=== PATIENT | female | born 1965 | race Caucasian/White ===

== ENCOUNTER → 2020-10-10 15:08 | Outpatient (CLI) | payer BC, SELFPAY ==
--- NOTE | ~2020-10-10 | MR_ITS ---
EXAMINATION: MR knee RT wo con DATE: 10/10/2020 15:46 INDICATION: Right knee pain. TECHNIQUE: Magnetic resonance imaging (MRI) of the right knee was performed without intravenous contr ast. Sequences included axial PD-weighted FS FSE, coronal PD-weighted FSE and PD-weighted FS FSE, sag ittal PD-weighted FSE, and sagittal T2-weighted FS FSE. COMPARISON: None. FINDINGS: Medial compartment: There is a vertical tear involving the body of medial meniscus. There is shallow partial-thickness ca rtilage loss of femoral condyle and tibial condyle, worst at the central articular surface. Lateral compartment: Lateral meniscus is normal. There is cartilage surface irregularity of tibial condyle and femoral con dyle. Patellofemoral compartment: There is deep partial thickness cartilage loss of patellar median ridge and shallow partial-thickness cartilage loss of patellar medial and lateral facets. There is deep partial thickness cartilage loss of central and medial trochlea and shallow partial-thickness cartilage loss of lateral trochlea. Ligaments and tendons: The anterior and posterior cruciate ligaments are normal. Medial collateral ligament and lateral herb ateral ligament complex are normal. There is mild patellar tendinopathy. Fluid: There is a small knee joint effusion. There is trace fluid in a Arnold's cyst. There is mild prepatell ar and superficial infrapatellar bursitis. IMPRESSION: 1. Moderate chondrosis of patellofemoral compartment and mild chondrosis of medial and lateral compar tments. 2. Tear of medial meniscus. 3. Small knee joint effusion. Reviewed, dictated and finalized at location A. STRIAL GAS PRODUCTION OPERATOR IMPRESSION: 1. Moderate chondrosis of patellofemoral compartment and mild chondrosis of med ial and lateral compartments. 2. Tear of medial meniscus. 3. Small knee joint effusion.
== END ==
DX: M25.461 Effusion, right knee (principal); S83.241A Other tear of medial meniscus, current injury, right knee, initial encounter; X58.XXXA Exposure to other specified factors, initial encounter
CPT/HCPCS: 73721

== ENCOUNTER 2025-01-22 13:16 | Outpatient (CLI) | payer BC, SELFPAY ==
--- OUTSIDE RECORDS SUMMARY | 2025-01-22 13:26 | XMS_ITS | Encounter Summary ---
Author Organization [facility] Healthcare Address [address] [place] [address] Care Team Providers Care Power Nut Runner Operator Name Role Phone Unavailable Primary Care Provider Unavailabl e Reason for Visit * Diagnostic Imaging (Routine) - Closed Specialty Diagnoses / Procedures Referred By Contac t Referred To Contact Procedures Breast Imaging Screening Outside Reference Referral, Self Referral ID Status Reason Start Date Expiration Date Visits Re quested Visits Authorized [id number] Closed 04/01/2023 04/30/2024 1 1 Encounter Details Date Type Department Care Team (Late st Contact Info) Description 09/05/2017 Hospital Encounter [facility] [address] [place] [id number] Social History Tobacco Use Types Packs/Day Years Used Date Smoking Tobacco: Former Cigarettes 1 2015 Smokeless Tobacco: Never PHQ-2 Answer Date Recorded PHQ-2 Total Score (If total score is 3 or more points, staff should administer the PHQ-9) 0 11/14/2023 Comments Unknown Sex and Gender Information Value Date Recorded Sex Assigned at Not on file Legal Sex Female 2:32 AM CHIEF STEWARD/STEWARDESS Gender Identity Female 07/27/2020 1:56 PM CHIEF STEWARD/STEWARDESS Sexual Orientation Straight 08/18/2021 1: 59 PM CHIEF STEWARD/STEWARDESS documented as of this encounter Functional Status * Audit-C Score Answer Date of Assessment Author 1 11/14/2023 8:38 AM CHIEF STEWARD/STEWARDESS Leonor Quezada Provider * Q1: How often do you have a drink containing alcohol? Answer Date of Assessment Author Monthly or less 11/14/2023 8:38 AM CHIEF STEWARD/STEWARDESS Leonor Quezada Provider * Q2: How many drinks containing alcohol do you have on a typical day when you are drinking? Answer Date of Assessment Author 1 or 2 11/14/2023 8:38 AM CHIEF STEWARD/STEWARDESS Leonor Quezada Provider * Q3: How often do you have six or more drinks on one occasion? Answer Date of Assessment Author Mala 11/14/2023 8:38 AM CHIEF STEWARD/STEWARDESS Leonor Quezada Provider documented as of this encounter Plan of Treatment Not on file documented as of this encounter Procedures Procedure Name Priority Date/Time Associated Diagnosis Comments BREAST IMAGING MG SCREENING OUTSIDE REFERENCE Routine 09/05/2017 12:00 AM CHIEF STEWARD/STEWARDESS documented in this encounter Results * Breast Imaging Screening Outside Reference (09/05/2017 12:00 AM CHIEF STEWARD/STEWARDESS) Impressions RAD_MAMMO_BJ - 04/01/2023 3:23 PM CDT These images are for Reference purposes only and have not been reviewed by [facility]. There will be no report generated by a [facility] Radiologist. Narrative RAD_MAMMO_BJ - 04/01/2023 3:23 PM CDT EXAMINATION: Images For Reference Purposes Only us Self Referral IMG MAMMO PROCEDURES Final Resul t RAD_MAMMO_BJ documented in this encounter Visit Diagnoses Not on filedocumented in this encounter
--- OUTSIDE RECORDS SUMMARY | 2025-01-22 13:26 | XMS_ITS | Encounter Summary ---
Author Organization [facility] Healthcare Address [address] [place] [address] Care Team Providers Care Plastic Boat Patcher Name Role Phone Unavailable Primary Care Provider Unavailabl e Reason for Visit * Diagnostic Imaging (Routine) - Closed Specialty Diagnoses / Procedures Referred By Contac t Referred To Contact Procedures Breast Imaging Screening Outside Reference Referral, Self Referral ID Status Reason Start Date Expiration Date Visits Re quested Visits Authorized [id number] Closed 04/01/2023 04/30/2024 1 1 Encounter Details Date Type Department Care Team (Late st Contact Info) Description 07/24/2018 Hospital Encounter [facility] [address] [place] [id number] Social History Tobacco Use Types Packs/Day Years Used Date Smoking Tobacco: Former Cigarettes 1 2015 Smokeless Tobacco: Never PHQ-2 Answer Date Recorded PHQ-2 Total Score (If total score is 3 or more points, staff should administer the PHQ-9) 0 11/14/2023 Comments Unknown Sex and Gender Information Value Date Recorded Sex Assigned at Not on file Legal Sex Female 2:32 AM MANAGER CLIENT Gender Identity Female 07/27/2020 1:56 PM MANAGER CLIENT Sexual Orientation Straight 08/18/2021 1: 59 PM MANAGER CLIENT documented as of this encounter Functional Status * Audit-C Score Answer Date of Assessment Author 1 11/14/2023 8:38 AM MANAGER CLIENT Leonor Quezada Provider * Q1: How often do you have a drink containing alcohol? Answer Date of Assessment Author Monthly or less 11/14/2023 8:38 AM MANAGER CLIENT Leonor Quezada Provider * Q2: How many drinks containing alcohol do you have on a typical day when you are drinking? Answer Date of Assessment Author 1 or 2 11/14/2023 8:38 AM Leonor Ojeda Provider * Q3: How often do you have six or more drinks on one occasion? Answer Date of Assessment Author Mala 11/14/2023 8:38 AM MANAGER CLIENT Leonor Quezada Provider documented as of this encounter Plan of Treatment Not on file documented as of this encounter Procedures Procedure Name Priority Date/Time Associated Diagnosis Comments BREAST IMAGING MG SCREENING OUTSIDE REFERENCE Routine 07/24/2018 12:00 AM MANAGER CLIENT documented in this encounter Results * Breast Imaging Screening Outside Reference (07/24/2018 12:00 AM MANAGER CLIENT) Impressions RAD_MAMMO_BJ - 04/01/2023 3:23 PM CDT These images are for Reference purposes only and have not been reviewed by [facility] Radiology. There will be no report generated by a [facility] Radiologist. Narrative RAD_MAMMO_BJ - 04/01/2023 3:23 PM CDT EXAMINATION: Images For Reference Purposes Only us Self Referral IMG MAMMO PROCEDURES Final Resul t RAD_MAMMO_BJ documented in this encounter Visit Diagnoses Not on filedocumented in this encounter
--- OUTSIDE RECORDS SUMMARY | 2025-01-22 13:26 | XMS_ITS | Referral Summary ---
Author Organization [facility] [address] Address [address] [place] [address] Care Team Providers Care Cnc Router Operator Name Role Phone Kip Springer MD Primary Care Provider [phone] Encounters Date Type Department Care Team Description 11/19/2024 Results Follow-Up [facility] at [address] [phone] Tabitha Dunlap MD 11/17/2024 6:55 PM CDT - 11/17/2024 11:59 PM CDT Hospital Encounter [address] [phone] Dysuria Discharge Disposition: Discharge to home or self care 11/17/2024 5:30 PM CDT Office Visit [facility] at [address] [phone] Dania Prater NP Dysuria (Primary Dx) from Last 3 Months Allergies Active Allergy Reactions Criticality Noted Date Comments Codeine Medications fluticasone propionate (FLONASE) 50 mcg/actuation nasal spray Administer 1 spray into each nostril daily Active ProAir RespiClick 90 mcg/actuation inhaler INHALE 2 PUFFS BY MOUTH EVERY 6 HOURS NEEDED FOR WHEEZING 1 each 2 05/17/20 22 Active ALPRAZolam (XANAX) 1 mg tabletIndicati ons:Anxiety TAKE 1 TABLET(1 MG) BY MOUTH DAILY NEEDED FOR ANXIETY 90 tablet 1 08/24/20 24 Active azithromycin (ZITHROMAX) 250 mg tabletIndicati ons:Upper Respiratory/HE ENT Infection Take 2 tabs (500 mg) by mouth today, than 1 tab (250 mg) daily for 4 days. 6 tablet 09/29/19 25 Active Additional Information Patient not taking.Reported on 11/17/2024 omeprazole (PriLOSEC) 40 mg capsule TAKE 1 CAPSULE DAILY 90 capsule 3 01/05/20 25 Active Zepbound 12.5 mg/0.5 mL pen injector ADMINISTER 12.5 MG UNDER THE SKIN EVERY 7 DAYS 2 mL 01/15/20 25 Active omeprazole (PriLOSEC) 40 mg capsule TAKE 1 CAPSULE DAILY 90 capsule 3 01/27/20 24 025 Discontinued Zepbound 12.5 mg/0.5 mL pen injector ADMINISTER 12.5 MG UNDER THE SKIN EVERY 7 DAYS 2 mL 12/15/19 25 025 Discontinued Active Problems Problem Noted Date Diagnosed Date Anxiety 10/31/2022 Mild intermittent asthma without complication Assessment & Plan (08/01/2020 9:13 AM GREEK PROFESSOR): Will try switching to Advair. Advised to rinse her mouth out thoroughly after each usage. Goal is to try to reduce her use of the rescue inhaler. Will check chest x-ray as she continues to have some issues. Gastroesophageal reflux disease without esophagi tis 08/01/2020 Assessment & Plan (08/01/2020 9:12 AM GREEK PROFESSOR): Doing well no dysphagia or other suspicious signs or symptoms. Will check B12 level. Dysplastic nevus of trunk 08/03/2015 Rosacea 06/06/2015 Overview (12/20/2017): Description: Benign, reassurance. Discussed cosmetic options for removal including electrocautery, laser, or covering up with makeup. Pt will consider options and discuss at procedural visit. 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 Immunizations Immunization Administration Dates Next Due Influenza, Quadrivalent, Cee l Culture-based MDCK, Preservative Free, Antibiotic Free, Intramuscular 08/01/2017 Influenza, Quadrivalent, Spl it, Preservative Free, Intramuscular 06/28/2021,06/20/2020,07/04/2019,07/08,07/06/2016 Pneumococcal Polysaccharide PPV23 06/20/2020 Tdap 11/02/2014 ZOSTER Recombinant 09/08/2020,06/20/2020 Social History Tobacco Use Types Packs/Day Years Used Date Smoking Tobacco: Former Cigarettes 1 - 2015 Smokeless Tobacco: Never Tobacco Cessation:Counseling Given: Not Answered PHQ-2 Answer Date Recorded PHQ-2 Total Score (If total score is 3 or more points, staff should administer the PHQ-9) 0 11/14/2023 Comments Unknown Sex and Gender Information Value Date Recorded Sex Assigned at Not on file Legal Sex Female 2:32 AM GREEK PROFESSOR Gender Identity Female 07/27/2020 1:56 PM GREEK PROFESSOR Sexual Orientation Straight 08/18/2021 1: 59 PM GREEK PROFESSOR Last Filed Vital Signs Vital Sign Reading Time Taken Comments Blood Pressure 94/69 11/17/2024 5:45 PM CDT Pulse 108 11/17/2024 6:39 PM CDT Temperature 36.3 C (97.4 F) 11/17/2024 5:45 PM CDT Respiratory Rate 18 11/17/2024 5:45 PM CDT Oxygen Saturation 98% 11/17/2024 6:39 PM CDT Inhaled Oxygen Concentration - - Weight 68.2 kg (150 lb 6.4 oz) 11/17/2024 5:45 P M CDT Height 157.5 cm (5' 2.01 ) 11/17/2024 5:45 PM CD T Body Mass Index 27.5 11/17/2024 5:45 PM CDT Plan of Treatment Not on file Procedures Procedure Name Priority Date/Time Associated Diagnosis Comments POCT URINALYSIS DIPSTICK Routine 11/17/2024 6:11 PM CDT Dysuria URINE CULTURE Routine 11/17/2024 5:49 PM CDT Dysuria SCREENING MAMMOGRAM BILATERAL W REYNALDO Schedule Routine, Read Routine (OP Routine) 04/10/2024 1:21 PM CDT Screening mammogram, encounter for HEPATITIS C ANTIBODY Routine 11/14/2023 9:42 AM GREEK PROFESSOR Routine general medical examination at a health care facility GERD without esophagitis Mild intermittent asthma without complication Pain of right hip Encounter for hepatitis C screening test for low risk patient COLONOSCOPY Routine 08/01/2015 from Last 3 Months or Most Recently Relevant to Health Maintenance Results * (ABNORMAL) POCT urinalysis dipstick (11/17/2024 6:11 PM CDT) Color, Urine, POC Red Comment:Taking AZO Clarity, ur, POC Clear Clear Glucose, ur, POC 250.(A) Negative MG/DL Bilirubin, ur, POC Large Negative, Small, Moderate, Large Ketones, ur, POC 40.(A) Negative Specific [place], POC 1.010 1.003 - 1.030 Blood, ur, POC Trace(A) Negative pH, ur, POC 5.0 5.0 - 8.0 Protein, ur, POC 300.(A) Negative Urobilinogen, urine, POC 8.0(A) 0.2 - 1.0 mg/dL Nitrite, ur, POC Positive(A ) Negative Leukocytes, ur, POC Large(A) Negative Lot Number [id number] Urine 11/17/2024 6:11 PM CDT Dania Prater NP POINT OF CARE TEST ORDERAB LES Final Result * Urine culture Urine, clean voided (11/17/2024 5:49 PM CDT) Report Final Report: Less than 100,000 colonies/mL (clinically insignificant growth based on current clinical standards) Comment:Testing performed by : [facility], [address] [facility], [place]., [address] Organism (CLINICALLY INSIGNIFICANT GROWTH [place]T [place]G Urine, clean voided 11/17/2024 5:49 PM CDT 11/18/2024 7:53 AM CDT Narrative ANT HUNG - 11/19/2024 10:07 AM CDT Testing performed by [facility] ([phone]) us Dania Prater CONSTRUCTION PRODUCER LAB MICROBIOLOGY - GENERAL ORDERABLES Final Result ANT HUNG [id number] Department [place] [address] * Screening Mammogram Bilateral W Reynaldo (04/10/2024 1:21 PM CDT) Anatomical Region Laterality Modality Breast Bilateral Mammography Narrative 04/13/2024 11:35 AM CDT Mammogram Technique: Bilateral Digital Breast Tomosynthesis, Bilateral C-view 2D Screening mammogram. Views obtained: bilateral craniocaudal and bilateral mediolateral oblique. Computer Aided Detection was performed. Mammogram Findings: The present examination has been compared to prior imaging studies performed at [facility] on 03/22/2023, and at [place], [place] on 07/24/2018 and 10/05/2021. There are scattered areas of fibroglandular density. There is no suspicious abnormality in either breast. Impression: There is no mammographic evidence of malignancy. Annual screening mammography is recommended. OVERALL FINAL ASSESSMENT: BI-RADS CATEGORY 1: Negative. Procedure Note Ariadna Steele MD - 04/13/2024 Mammogram Technique: Bilateral Digital Breast Tomosynthesis, Bilateral C-view 2D Screening mammogram. Views obtained: bilateral craniocaudal and bilateral mediolateral oblique. Computer Aided Detection was performed. Mammogram Findings: The present examination has been compared to prior imaging studies performed at [facility] on 03/22/2023, and at [place], [place] on 07/24/2018 and 10/05/2021. There are scattered areas of fibroglandular density. There is no suspicious abnormality in either breast. Impression: There is no mammographic evidence of malignancy. Annual screening mammography is recommended. OVERALL FINAL ASSESSMENT: BI-RADS CATEGORY 1: Negative. Self Screening Mammogram IMG MAMMO PROCEDURES Fi nal Result * Hepatitis C antibody Blood (11/14/2023 9:42 AM GREEK PROFESSOR) Hep C Ab Non Reactive Non Reactive [facility] - 01 Comment: HCV antibody alone does not differentiate between previously resolved infection and active infection. Equivocal and Reactive HCV antibody results should be followed up with an HCV RNA test to support the diagnosis of active HCV infection. Blood 11/14/2023 9:42 AM GREEK PROFESSOR 11/14/2023 Narrative [facility] - 11/15/2023 5:09 AM GREEK PROFESSOR Performed at: [address] [place] [id number] Clinical Liaison: Jose Raul Lomeli PhD, Phone: [phone] Kip Springer MD LAB MICROBIOLOGY - GENERAL OR DERABLES Final Result Performing Organization Address City/State/[facility] Co de Phone [facility] - 01 * Colonoscopy (08/01/2015) Anatomical Region Laterality Modality Other Narrative 08/01/2015 Pt reported she had [address] garcia Normal repeat in 10 Historical Provider ENDOSCOPY PROCEDURES [place] Result from Last 3 Months or Most Recently Relevant to Health Maintenance Insurance [facility] [place] Care Teams Cnc Router Operator Relationship Specialty Start Date End Date Kip Springer MD PCP - General Internal Medicine 07/27/20
--- OUTSIDE RECORDS SUMMARY | 2025-01-22 13:27 | XMS_ITS | Encounter Summary ---
Author Organization [facility] Healthcare Address [address] [place] [address] Care Team Providers Care Student Advisor Name Role Phone Unavailable Primary Care Provider Unavailabl e Reason for Visit * Diagnostic Imaging (Routine) - Closed Specialty Diagnoses / Procedures Referred By Contac t Referred To Contact Procedures Breast Imaging Screening Outside Reference Referral, Self Referral ID Status Reason Start Date Expiration Date Visits Re quested Visits Authorized [id number] Closed 04/01/2023 04/30/2024 1 1 Encounter Details Date Type Department Care Team (Late st Contact Info) Description 07/06/2016 Hospital Encounter [facility] [address] [place] [id number] Social History Tobacco Use Types Packs/Day Years Used Date Smoking Tobacco: Former Cigarettes 2015 Smokeless Tobacco: Never PHQ-2 Answer Date Recorded PHQ-2 Total Score (If total score is 3 or more points, staff should administer the PHQ-9) 0 11/14/2023 Comments Unknown Sex and Gender Information Value Date Recorded Sex Assigned at Not on file Legal Sex Female 2:32 AM ASSOCIATE DATA SCIENTIST Gender Identity Female 07/27/2020 1:56 PM ASSOCIATE DATA SCIENTIST Sexual Orientation Straight 08/18/2021 1: 59 PM ASSOCIATE DATA SCIENTIST documented as of this encounter Functional Status * Audit-C Score Answer Date of Assessment Author 1 11/14/2023 8:38 AM ASSOCIATE DATA SCIENTIST Leonor Quezada Provider * Q1: How often do you have a drink containing alcohol? Answer Date of Assessment Author Monthly or less 11/14/2023 8:38 AM Leonor Ojeda Provider * Q2: How many drinks containing alcohol do you have on a typical day when you are drinking? Answer Date of Assessment Author 1 or 2 11/14/2023 8:38 AM Leonor Ojeda Provider * Q3: How often do you have six or more drinks on one occasion? Answer Date of Assessment Author Mala 11/14/2023 8:38 AM Leonor Ojeda Provider documented as of this encounter Plan of Treatment Not on file documented as of this encounter Procedures Procedure Name Priority Date/Time Associated Diagnosis Comments BREAST IMAGING MG SCREENING OUTSIDE REFERENCE Routine 07/06/2016 12:00 AM CDT documented in this encounter Results * Breast Imaging Screening Outside Reference (07/06/2016 12:00 AM CDT) Impressions RAD_MAMMO_BJ - 04/01/2023 3:24 PM CDT These images are for Reference purposes only and have not been reviewed by [facility] Radiology. There will be no report generated by a [facility] Radiologist. Narrative RAD_MAMMO_BJ - 04/01/2023 3:24 PM CDT EXAMINATION: Images For Reference Purposes Only us Self Referral IMG MAMMO PROCEDURES Final Resul t RAD_MAMMO_BJ documented in this encounter Visit Diagnoses Not on filedocumented in this encounter
--- OUTSIDE RECORDS SUMMARY | 2025-01-22 13:27 | XMS_ITS | CONTINUITY OF CARE DOCUMENT ---
Author Name mata august Address Unknown Organization [facility] Address [id number] [place] [address] [address] [place] [address] Phone [phone] Care Team Providers Care Administrative Coordinator Name Role Phone mata august Unavailable Unavailable INSURANCE PROVIDERS Payer name Policy type / Coverage type [place] red libertarian ID [facility] [id number]
--- OUTSIDE RECORDS SUMMARY | 2025-01-22 13:27 | XMS_ITS | Clinical Summary ---
Author Organization [facility] [address] Address [address] [place] [address] Care Team Providers Care Bucket Chucker Name Role Phone Kip Springer MD Primary Care Provider [phone] Allergies Active Allergy Reactions Criticality Noted Date [...] complication Assessment & Plan (08/01/2020 9:13 AM ORTHOTIC FITTER): Will try switching to Advair. Advised to rinse her mouth out thoroughly after each usage. Goal is to try to reduce her use of the rescue inhaler. Will check chest x-ray as she continues to have some issues. Gastroesophageal reflux disease without esophagi tis 08/01/2020 Assessment & Plan (08/01/2020 9:12 AM ORTHOTIC FITTER): Doing well no dysphagia or other suspicious [...] nevus on left neck, holding for pathology. Encounters Date Type Department Care Team Description 11/19/2024 Results Follow-Up [facility] [address] [address] Tabitha Dunlap MD 11/17/2024 6:55 PM CDT - 11/17/2024 11:59 PM CDT Hospital Encounter [address] [address] Dysuria Discharge Disposition: Discharge to home or self care 11/17/2024 5:30 PM CDT Office Visit [facility] [address] [id number] Dania Prater NP Dysuria (Primary Dx) from Last 3 Months Immunizations Immunization Administration Dates Next Due Influenza, Quadrivalent, Cee l Culture-based MDCK, Preservative Free, Antibiotic Free, Intramuscular 08/01/2017 Influenza, Quadrivalent, Spl it, Preservative Free, Intramuscular 06/28/2021,06/20/2020,07/04/2019,07/08,07/06/2016 Pneumococcal Polysaccharide PPV23 06/20/2020 Tdap 11/02/2014 ZOSTER Recombinant 09/08/2020,06/20/2020 Surgical History Surgery Date Site/Laterality Comments HYSTERECTOMY SECTION LAPAROSCOPIC GASTRIC BANDING Medical History Medical History Date Comments Anxiety Allergic Family History Medical History Relation Name Comments Skin cancer Maternal Grandfather Family history of skin cancer - Relation: Grandfather (Added by TW Conv) Skin cancer Mother Family history of skin cancer - (Added by TW Conv) Relation Name Status Comments Maternal Grandfather Mother Social History Tobacco Use Types Packs/Day Years [...] on file Legal Sex Female 2:32 AM ORTHOTIC FITTER Gender Identity Female 07/27/2020 1:56 PM ORTHOTIC FITTER Sexual Orientation Straight 08/18/2021 1: 59 PM ORTHOTIC FITTER Obstetrics History Last Filed Vital Signs Vital Sign Reading [...] 11/17/2024 5:45 PM CDT Plan of Treatment Health Maintenance Due Date Last Done Comments Hepatitis B Screening 1983 Pneumococcal vaccine <65 (2 of 2 - PCV) 06/20/2021 06/20/2020 Covid-19 Vaccine (5 - 2023-2 5 season) 2024 06/22/2022, 10/04/2021, 12/03/2020, Additional history exists DTaP/Tdap/Td Vaccine (2 - Td or Tdap) 11/02/2024 11/02/2014 Depression Screening 11/13/2024 11/14/2023, 11/14/19 24 Regular Well Visit/Exam 18-64 11/13/2024, 10/31/2022, 08/21/2021, Additional history exists Breast Cancer Screening-Mammogram 04/10/2025 024, 03/22/2023 Colon Cancer Screening-Colonoscopy 08/01/20252014 Zoster Vaccine Completed 09/08/2020, 06/20/2020 Hepatitis C Screening Completed 11/14/2023 Influenza Vaccine Completed 07/30/2024, , 06/28/2021, Additional history exists Procedures Procedure Name Priority Date/Time Associated Diagnosis Comments POCT URINALYSIS DIPSTICK Routine 11/17/2024 6:11 PM CDT Dysuria URINE CULTURE Routine 11/17/2024 5:49 PM CDT Dysuria SCREENING MAMMOGRAM BILATERAL W REYNALDO Schedule Routine, Read Routine (OP Routine) 04/10/2024 1:21 PM CDT Screening mammogram, encounter for HEPATITIS C ANTIBODY Routine 11/14/2023 9:42 AM ORTHOTIC FITTER Routine general medical examination at a health [...] Large Ketones, ur, POC 40.(A) Negative Specific [place], POC 1.010 1.003 - 1.030 Blood, ur, POC Trace(A) Negative pH, ur, POC 5.0 5.0 - 8.0 Protein, ur, POC 300.(A) Negative Urobilinogen, urine, POC 8.0(A) 0.2 - 1.0 mg/dL Nitrite, ur, POC Positive(A ) Negative Leukocytes, ur, POC Large(A) Negative Lot Number [id number] Urine 11/17/2024 6:11 PM CDT us Dania Prater NP POINT OF CARE TEST ORDERAB LES Final Result * Urine culture Urine, clean voided (11/17/2024 5:49 PM CDT) Pathologist [facility] Report Final Report: Less than 100,000 colonies/mL (clinically insignificant growth based on current clinical standards) Comment:Testing performed by : [facility], [address] [place]., [address] Organism (CLINICALLY INSIGNIFICANT GROWTH [place]T [place]G Urine, clean voided 11/17/2024 5:49 PM CDT 11/18/2024 7:53 AM CDT Narrative ANT HUNG - 11/19/2024 10:07 AM CDT Testing performed by [facility] ([phone]) us Dania Prater NP LAB MICROBIOLOGY - GENERAL ORDERABLES Final Result ANT HUNG [id number] [address] Department [place] [address] * Screening Mammogram Bilateral W Reynaldo (04/10/2024 1:21 PM CDT) Anatomical Region Laterality Modality Breast Bilateral Mammography Narrative 04/13/2024 11:35 AM CDT Mammogram Technique: Bilateral Digital Breast Tomosynthesis, Bilateral C-view 2D Screening mammogram. Views obtained: bilateral craniocaudal and bilateral mediolateral oblique. Computer Aided Detection was performed. Mammogram Findings: The present examination has been compared to prior imaging studies performed at [facility] on 03/22/2023, and at [place], [place] on 07/24/2018 and 10/05/2021. There are [...] compared to prior imaging studies performed at [facility] on 03/22/2023, and at [place], [place] on 07/24/2018 and 10/05/2021. There are scattered areas of fibroglandular density. There is no suspicious abnormality in either breast. Impression: There is no mammographic evidence of malignancy. Annual screening mammography is recommended. OVERALL FINAL ASSESSMENT: BI-RADS CATEGORY 1: Negative. us Self Screening Mammogram IMG MAMMO PROCEDURES Fi nal Result * Hepatitis C antibody Blood (11/14/2023 9:42 AM ORTHOTIC FITTER) Hep C Ab Non Reactive Non Reactive [facility] - 01 Comment: HCV antibody alone does not differentiate between previously resolved infection and active infection. Equivocal and Reactive HCV antibody results should be followed up with an HCV RNA test to support the diagnosis of active HCV infection. Blood 11/14/2023 9:42 AM ORTHOTIC FITTER 11/14/2023 Narrative [facility] - 11/15/2023 5:09 AM ORTHOTIC FITTER Performed at: 01 - [facility] [address] [id number] [employer] Director: Jose Raul Lomeli PhD, Phone: [phone] Kip Springer MD LAB MICROBIOLOGY - GENERAL OR DERABLES Final Result [facility] - 01 * Colonoscopy (08/01/2015) Anatomical Region Laterality Modality Other Narrative 08/01/2015 Pt reported she had [address] garcia Normal repeat in 10 Historical Provider ENDOSCOPY PROCEDURES Dom[place] l Result from Last 3 Months or Most Recently Relevant to Health Maintenance Insurance Balaya MS Balaya MS Balaya MS Balaya MS Care Teams Bucket Chucker Relationship Specialty Start Date End Date Kip Springer MD PCP - General Internal Medicine 07/27/20
== END 2025-01-22 13:17 | disposition home or self-care (01) ==
LOC: ANHAUDIO 13:17
PROVIDERS: PCP Internal Medicine; Visit Provider Otolaryngology
DX: H90.0 Conductive hearing loss, bilateral (principal)
CPT/HCPCS: 92557; 92567

== ENCOUNTER 2025-02-18 07:36 | Outpatient (CLI) | payer BC, SELFPAY ==
--- NOTE | ~2025-02-18 | MR_ITS ---
MRI of the lumbar spine Clinical History: Compression fracture Technique: Axial T2-weighted images, and sagittal T1-weighted, T2-weighted, and and T2 fat-sat images were acquired. Findings: There is mild chronic compression of T12, loss of height but no marrow edema. No fracture s een in the lumbar spine. There is 3 mm retrolisthesis of L3 over L4. No bone marrow signal abnormalit y seen. At L1-L2, there is minimal degenerative change. There is minimal facet hypertrophy. No spinal canal s tenosis or neural foraminal narrowing. At L2-L3, there is minimal disc bulge and mild facet hypertrophy. No spinal canal stenosis or neural foraminal narrowing. At L3-L4, there is mild disc bulge with moderate facet arthropathy. No central canal stenosis. There is mild to moderate left neural foraminal narrowing, and mild right neural foraminal narrowing. At L4-L5, there is disc bulge and severe facet arthropathy. No central canal stenosis. There is mild to moderate bilateral neural foraminal narrowing. At L5-S1, there is minimal disc bulge with moderate facet arthropathy. No central canal stenosis or n eural foraminal narrowing. Paravertebral soft tissues are unremarkable. Impression: Mild degenerative spondylosis in the lumbar spine overall, as detailed above. Mild chronic compression deformity of T12. Reviewed, dictated and finalized at [facility]. Impression: Mild degenerative spondylosis in the lumbar spine overall, as detailed above. Mild chronic compression deformity of T12.
== END 2025-02-18 07:37 | disposition home or self-care (01) ==
PROVIDERS: PCP Internal Medicine; Referring Provider Physical Medicine & Rehabilitation; Visit Provider Chiropractor
DX: M47.816 Spondylosis without myelopathy or radiculopathy, lumbar region (principal); M43.8X4 Other specified deforming dorsopathies, thoracic region
CPT/HCPCS: 72148

== ENCOUNTER 2025-06-14 09:51 | Outpatient (CLI) | payer BC, SELFPAY ==
--- NOTE | ~2025-06-14 | DEXA_ITS ---
Bone Density Report Name: CHRIS INGRAM Age: 59 Sex: Female Ethnicity: White Date of : 1965 Indication: postmenopausal; screening for osteoporosis; prior fracture; hysterectomy; Referring Provider: Racheal, Kip Garcia Study: Bone densitometry was performed. Exam Date: June 14, 2025 Accession number: [id number] Bone Density: Region BMD T-score Z-score Classification AP Spine(L1-L4) 0.884 -1.5 0.0 Osteopenia Femoral Neck (Left) 0.570 -2.5 -1.2 Osteoporosis Total Hip (Left) 0.698 -2.0 -1.0 Osteopenia Femoral Neck (Right) 0.561 -2.6 -1.3 Osteoporosis Total Hip (Right) 0.691 -2.1 -1.1 Osteopenia Total Hip Mean 0.694 -2.1 -1.1 Osteopenia World Health Organization criteria for BMD impression classify patients as: Normal (T-score at or above -1.0), Osteopenia (T-score between -1.0 and -2.5), or Osteoporosis (T-score at or below -2.5). 10-year Fracture Risk: FRAX not reported because: Some T-score for Spine Total or Hip Total or Femoral Neck at or below -2.5 Prior hip or vertebral fracture Clinical Information Provided by Patient: Have had a previous hip or vertebral fracture Has had a low trauma fracture Has used the following medications: Vitamin D, Calcium Has the following medical conditions: Hysterectomy Patient maximum height was 63 Menopause Age: 46 Drinks caffeinated beverages Onset of menses at age 11 Number of children 2 Impression: The patient has established osteoporosis, based on the Right Femoral Neck T-score and the existence of a prior fracture. The patient has risk factors, including: previous fracture. Discussion: HIGH RISK OF FRACTURE. BONE DENSITY IS UNDESIRABLY LOW AT ONE OR MORE SKELETAL SITES, CONSISTENT WITH POSTMENOPAUSAL OSTEOPOROSIS. This patient's lowest T-score, in a patient who has previously fractured, meets the World Health Organization's (WHO) criteria for severe osteoporosis. In untreated patients, the risk of osteoporotic fracture increases approximately two-fold for each 1.0 SD decrease in T-score. Low bone density is not the only risk factor for fracture; also consider factors such as patient's age, frailty or poor health, risk of falling, risk of injury, previous osteoporotic fracture, family history of osteoporosis, cigarette smoking, low body weight, etc. Not everyone with low bone mineral density has osteoporosis; osteomalacia and other metabolic bone disorders should also be considered. Patients who have osteoporosis should be evaluated for specific diseases and conditions (secondary causes) that may cause or contribute to bone loss. The [place] [employer] Endocrinologists (AACE) and National Osteoporosis Foundation (NOF) recommend pharmacologic intervention for all postmenopausal women with a previous hip or vertebral fracture and a T-score in this range. The patient should follow a healthful lifestyle (good nutrition with adequate calcium and vitamin D, and appropriate weight-bearing exercise). Follow-Up: Consider a repeat BMD and Vertebral Fracture Assessment (VFA) exam in 2 years or sooner if medically necessary, to reassess this patient's status. Reported by: CLARKE on 06/14/2025 10:55:00 AM. Reviewed, dictated and finalized at location A.
== END 2025-06-14 09:52 | disposition home or self-care (01) ==
PROVIDERS: PCP Internal Medicine; Visit Provider Internal Medicine
DX: Z78.0 Asymptomatic menopausal state (principal); M85.88 Other specified disorders of bone density and structure, other site; M81.0 Age-related osteoporosis without current pathological fracture; M85.852 Other specified disorders of bone density and structure, left thigh; M85.851 Other specified disorders of bone density and structure, right thigh
CPT/HCPCS: 77080